=== PATIENT | female | born 1990 | race Caucasian/White ===

== ENCOUNTER 2017-02-13 09:40 | Emergency (ER) | payer OTHER ==
--- NOTE | 2017-02-13 10:40 | ED Physician Documentation ---
Upper Respiratory Symptoms - HISTORIAN Historian: patient - HPI Stated Complaint: Congestion Chief Complaint: Cough/ Upper Respiratory Further Comments: yes (26 year old female patient presents with complaints of body aches, nasal congestion, headache and cough for 2 days. Patient is 27 weeks - reports decreased movement.) - ROS CONST/EYES: denies: weakness CVS/RESP: other (cough) LYMPH: denies: leg swelling, rash, ankle swelling GI/: none NEURO/PSYCH: denies: fainting MS/SKIN: denies: joint pain, muscle aches - PAST HX Lung Disease: none PE Risk Factors: none Surgeries/Procedures: none Immunizations: UTD Allergies/Adverse Reactions: Allergies Allergy/AdvReac Type Severity Reaction Status Date / Time morphine Allergy Verified 02/13/17 10:04 Home Medications: Ambulatory Orders Medication Instructions Recorded Cefdinir [Omnicef] 300 mg PO BID #20 capsule 02/13/17 Cetirizine HCl [Wal-Zyr] 10 mg PO DAILY #30 capsule 02/13/17 Vit/Iron Fumarate/FA 1 each PO DAILY 02/13/17 [ Tablet] - SOCIAL HX Smoking History: non-smoker - FAMILY HX Family History: denies: none - VITAL SIGNS Vital Signs: Vital Signs Temp Pulse Resp BP Pulse Ox 97.8 F 88 18 121/58 98 02/13/17 09:40 02/13/17 10:45 02/13/17 10:45 02/13/17 10:45 02/13/17 10:45 - REVIEWED ASSESSMENTS Nursing Assessment Reviewed: Yes Vitals Reviewed: Yes Progress - Progress Progress: G2, P 0, Ab 1 Discussed nasal polyps - treatment plan and evaluation. Patient does not want CT at this time during her . I am in agreement with that plan. Will treat sinus infection and encouraged patient to start pseudophed and netti pot. Will not use steroids or nasal spray due to medication safety Category C. Encouraged patient to follow up with ENT and OB regarding treatment plant. Patient states she does not want any medications that are not completely safe during . ED Results Lab/Radiology - Orders Orders: ED Orders Category Date Time Status INFLUENZA A&B Stat Lab 02/13/17 10:11 Ordered Upper Respiratory Symptoms - EXAM General Appearance: moderate distress EENT: eyes nml inspection, lids & conjunct. nml, PERRL, ear nml, purulent nasal drainage, pharynx nml, other (Left nare with nasal polyp noted. right nare with significant edema vs polyp; purulent nasal drainage. Patient unable to breath through left nare. ) Respiratory: no resp. distress, breath sounds nml, no pain on inspiration, speaks full sentences, no pleuritic chest pain Abdomen: non-tender, no organomegaly, nml bowel sounds, no distention CVS: reg rate & rhythm, heart sounds normal, equal pulses, no murmur, no gallop , PMI nml, no JVD, no friction rub, 24 Skin: color nml, no rash, warm,dry Extremities: non-tender, normal range of motion, no evidence of injury, no edema , J, PATTERNATOR Neuro/Psych: oriented x3, neuro intact, mood/affect nml, CN's nml as tested Discharge Clincal Impression: Acute sinus infection Qualifiers: Sinusitis location: frontal Recurrence: not specified as recurrent Qualified Code(s): J01.10 - Acute frontal sinusitis, unspecified Ethmoid sinusitis Qualifiers: Chronicity: acute Recurrence: not specified as recurrent Qualified Code(s): J01.20 - Acute ethmoidal sinusitis, unspecified Maxillary sinusitis, acute Qualifiers: Recurrence: not specified as recurrent Qualified Code(s): J01.00 - Acute maxillary sinusitis, unspecified Qualifiers: Weeks of gestation: 27 weeks Qualified Code(s): Z3A.27 - 27 weeks gestation of Prescriptions: Cefdinir [Omnicef] 300 mg PO BID #20 capsule Cetirizine HCl [Wal-Zyr] 10 mg PO DAILY #30 capsule Referrals: Primary Doctor,No [Primary Care Provider] - 2 Days Additional Instructions: house moving supervisor an over the counter decongestant such as pseudoped. Ask the pharmacist for assistance and tell them you are . You may want to try Vicks rub on your chest and/or feet Cough drops as needed for cough and sore throat. Increase your fluid intake juices, hot tea, non-caffeinated beverages Use a humidifier in the room where you sleep. You can also sit in a steam filled bathroom 1-2 times a day. Tylenol or Ibuprofen as needed for fever, pain and body aches. You may benefit from the use of a netti pot follow package instructions. A prescription for Zyrtec and Omnicef have been sent to the pharmacy. You will need to follow up with ENT (ear nose and throat) regarding your nasal polyps. We will NOT start nasal spray, steroids or CT due to your at this time. There are safer ways to treat your symptoms and evaluate your polyps with ENT See your primary care doctor after you have completed your antibiotic if you symptoms have not resolved. Many times it takes multiple rounds of antibiotics to resolve a sinus infection. Home Medications: Ambulatory Orders Cefdinir [Omnicef] 300 mg PO BID #20 capsule 02/13/17 Cetirizine HCl [Wal-Zyr] 10 mg PO DAILY #30 capsule 02/13/17 Vit/Iron Fumarate/FA [ Tablet] 1 each PO DAILY 02/13/17 Condition: Stable Disposition: 01 HOME, SELF-CARE Decision to Admit: NO Decision Time: 10:40
[2017-02-13 10:55] VITALS: BP 121/58
== END 2017-02-13 10:45 | disposition home or self-care (01) ==
LOC: ED 09:40
DX: J01.10 Acute frontal sinusitis, unspecified (principal); J01.20 Acute ethmoidal sinusitis, unspecified; J01.00 Acute maxillary sinusitis, unspecified; Z33.1 Pregnant state, incidental; Z3A.27 27 weeks gestation of pregnancy
CPT/HCPCS: 87400; 99283